=== PATIENT | female | born 1945 | race Caucasian/White ===

== ENCOUNTER 2021-04-19 11:38 | Day surgery (SDC) | payer OTHER ==
[~2021-04-19] VITALS: Ht 165.1 cm; Wt 97.3 kg
[~2021-04-19 11:38] MED LIST: ACEDIPPM PO; ASPI81EC PO; CALCAVITD PO; CONEST.625 PO; CYAN1000I IM; ERGO400 PO; Estradiol1 MG PO; HYDCHL25 PO; INSLIS75I; KRILL OIL; LORA10ER PO; OMEP20ER PO; OMEP40CA12 PO; ONDA4 PO; PRAV40 PO; RANI150 PO; TRAM50 PO
[2021-04-19] MEDS ORDERED: PANT40 (12:15)
--- NOTE | 2021-04-19 12:25 | NUR ---
04/19/21 1225 Selena Diallo FIRST ATTEMPT MISSED BY APRIL IN THE RIGHT HAND. SECOND ATTEMPT WAS SUCCESFUL IN THE RIGHT FOREARM BY RN. PT MAYA.
== END 2021-04-19 13:45 | disposition home or self-care (01) ==
LOC: ORSCSDS 11:38
PROVIDERS: Internal Medicine Gastroenterology
PROC: 0DBP8ZX Excision of Rectum, Via Natural or Artificial Opening Endoscopic, Diagnostic (ICD-10-PCS; principal; 2021-04-19 13:45)
PROC: 0DBN8ZX Excision of Sigmoid Colon, Via Natural or Artificial Opening Endoscopic, Diagnostic (ICD-10-PCS; principal; 2021-04-19 13:45)
PROC: 0DBH8ZX Excision of Cecum, Via Natural or Artificial Opening Endoscopic, Diagnostic (ICD-10-PCS; principal; 2021-04-19 13:45)
DX: Z12.11 Encounter for screening for malignant neoplasm of colon (principal); D12.0 Benign neoplasm of cecum; D12.5 Benign neoplasm of sigmoid colon; D12.8 Benign neoplasm of rectum; K57.30 Diverticulosis of large intestine without perforation or abscess without bleeding; Z86.010 Personal history of colon polyps; Z87.891 Personal history of nicotine dependence; Z79.82 Long term (current) use of aspirin; Z79.899 Other long term (current) drug therapy
CPT/HCPCS: 88305; J2704; J7120